=== PATIENT | female | born 1970 | race Caucasian/White ===

== ENCOUNTER 2017-08-23 07:46 | Outpatient (CLI) | payer OTHER | END 2017-08-23 09:55 | disposition home or self-care (01) | LOC: MAMO-SONO 07:46 | DX: E03.8 Other specified hypothyroidism (principal); N60.11 Diffuse cystic mastopathy of right breast; N60.12 Diffuse cystic mastopathy of left breast; Z12.31 Encounter for screening mammogram for malignant neoplasm of breast ==

== ENCOUNTER 2017-08-23 10:33 | Outpatient (CLI) | payer OTHER | END 2017-08-23 10:39 | disposition home or self-care (01) | LOC: RAD 10:33 | DX: J00 Acute nasopharyngitis [common cold] (principal) ==

== ENCOUNTER → 2017-08-23 | Outpatient (CLI) | payer OTHER | END | disposition home or self-care (01) | LOC: LAB 06:47 | DX: D64.9 Anemia, unspecified (principal); R73.09 Other abnormal glucose; E03.8 Other specified hypothyroidism; N39.0 Urinary tract infection, site not specified; E55.9 Vitamin D deficiency, unspecified; M19.90 Unspecified osteoarthritis, unspecified site; N92.1 Excessive and frequent menstruation with irregular cycle; E78.2 Mixed hyperlipidemia ==

== ENCOUNTER 2017-08-27 08:52 | Outpatient (CLI) | payer OTHER | END 2017-08-27 09:05 | disposition home or self-care (01) | LOC: LAB 08:52 | DX: D64.9 Anemia, unspecified (principal); R73.09 Other abnormal glucose; E03.8 Other specified hypothyroidism; N39.0 Urinary tract infection, site not specified; E55.9 Vitamin D deficiency, unspecified; M19.91 Primary osteoarthritis, unspecified site; K92.1 Melena; E78.2 Mixed hyperlipidemia ==

== ENCOUNTER 2017-11-15 07:09 | Outpatient (CLI) | payer OTHER | END 2017-11-15 07:22 | disposition home or self-care (01) | LOC: LAB 07:09 | DX: E55.9 Vitamin D deficiency, unspecified (principal); E03.8 Other specified hypothyroidism; R73.09 Other abnormal glucose; E78.2 Mixed hyperlipidemia; N95.1 Menopausal and female climacteric states ==

== ENCOUNTER 2023-02-12 09:01 | Emergency (ER) | payer OTHER ==
[~2023-02-12] VITALS: Ht 165.1 cm; Wt 77.1 kg
[2023-02-12] MEDS ORDERED: PROZAC10 MG PO (09:32)
[2023-02-12] MEDS ORDERED: TRAZODONE HCL150 MG PO (09:32)
[2023-02-12] MEDS ORDERED: DICLOFENAC POTA50 MG PO (11:18)
[2023-02-12] MEDS ORDERED: NORFLEX100MG PO (11:18)
== END 2023-02-12 11:30 | disposition home or self-care (01) ==
LOC: ER 09:01
DX: S09.8XXA Other specified injuries of head, initial encounter (principal); W07.XXXA Fall from chair, initial encounter; Y93.89 Activity, other specified; Y92.018 Other place in single-family (private) house as the place of occurrence of the external cause; Z88.6 Allergy status to analgesic agent

== ENCOUNTER 2024-05-06 10:22 | Outpatient (CLI) | payer OTHER ==
[~2024-05-06 10:22] MED LIST: DICLOFENAC POTA50 MG PO; NORFLEX100MG PO; PROZAC10 MG PO; TRAZODONE HCL150 MG PO
== END 2024-05-06 10:24 | disposition home or self-care (01) ==
LOC: NUCLEAR 10:22
PROVIDERS: ATTEND Internal Medicine
DX: I47.10 Supraventricular tachycardia, unspecified (principal); I34.1 Nonrheumatic mitral (valve) prolapse

== ENCOUNTER 2024-05-06 14:41 | Outpatient (CLI) | payer OTHER | END 2024-05-06 14:45 | disposition home or self-care (01) | LOC: MAMO-SONO 14:41 | PROVIDERS: ATTEND Internal Medicine | DX: N60.11 Diffuse cystic mastopathy of right breast (principal); N60.12 Diffuse cystic mastopathy of left breast ==

== ENCOUNTER 2024-09-29 11:17 | Outpatient (CLI) | payer OTHER | END 2024-09-29 11:26 | disposition home or self-care (01) | LOC: SONOGRAMA 11:17 | DX: E04.2 Nontoxic multinodular goiter (principal) ==

== ENCOUNTER → 2024-11-11 13:09 | Outpatient (CLI) | payer OTHER | END | disposition home or self-care (01) | LOC: NUCLEAR 13:09 | PROVIDERS: ATTEND Obstetrics & Gynecology | DX: M81.0 Age-related osteoporosis without current pathological fracture (principal) ==